=== PATIENT | male | born 1985 | race Two or more races ===

== ENCOUNTER 2017-06-27 14:33 | Emergency (ER) | payer OTHER, SELFPAY ==
[~2017-06-27] VITALS: Ht 177.8 cm; Wt 92.1 kg
[2017-06-27] MEDS ORDERED: METFORMIN HCL500 M1 ORAL ×2 (14:46→16:19)
[2017-06-27 14:55] VITALS: BP 131/75
--- NOTE | 2017-06-27 14:56 | Emergency Room Report ---
History of Present Illness General Chief Complaint: Vomiting Source: Patient Present Illness HPI 31YOM walk in with upper left abd pain with nausea.vomiting and diarrhea since last night Pain is intermittent, spastic No sick contacts at home No previous surgery or history of renal stones History of DM on metformin. Didnt take today Denies ETOH, drug abuse Allergies: Coded Allergies: No Known Allergies (Unverified , 06/27/17) Patient History Past Medical History: DM Past Surgical History: none Pertinent Family History: none Social History: Denies: smoking, alcohol use, drug use Immunizations: UTD Reviewed Nursing Documentation: PMH: Agreed, PSxH: Agreed Nursing Documentation-PMH Hx Diabetes: Yes Review of Systems All Other Systems: negative except mentioned in HPI Physical Exam Vital Signs Date Time Temp Pulse Resp B/P (MAP) Pulse Ox O2 Delivery O2 Flow Rate FiO2 06/27/17 14:42 98.2 133 18 129/79 96 Room Air Sp02 EP Interpretation: reviewed, normal General Appearance: normal inspection, well appearing, no apparent distress, alert, GCS 15, non-toxic Head: atraumatic ENT: normal ENT inspection, hearing grossly normal, normal voice Neck: normal inspection, full range of motion, supple, no bony tend Respiratory: normal inspection, lungs clear, normal breath sounds, no respiratory distress, no retraction, no wheezing Cardiovascular #1: regular rate, rhythm, no edema Gastrointestinal: normal inspection, normal bowel sounds, non tender, soft, no guarding, no hernia, other - Mild ttp to LUQ Genitourinary: no CVA tenderness Musculoskeletal: normal inspection, back normal, normal range of motion, Cristi' s Sign negative Neurologic: normal inspection, alert, responsive, speech normal Psychiatric: normal inspection, judgement/insight normal, mood/affect normal Skin: normal inspection, normal color, no rash Medical Decision Making Diagnostic Impression: Primary Impression: Abdominal pain Qualified Codes: R10.12 - Left upper quadrant pain Additional Impressions: Nausea & vomiting Qualified Codes: R11.2 - Nausea with vomiting, unspecified Hyperglycemia Abscess of left lung without pneumonia Qualified Codes: J85.2 - Abscess of lung without pneumonia ER Course RUQ pain with nausea/vomiting/diarrhea Leuks 25K. Hyperglycemia >400. Elevated total/direct bili. Lipase normal Blood Cx sent Empiric Abx given CT: left parenchymal abscess 5cm with surrounding empyema. Initially approved by insurance for Dr Pérez to accept at [place] [facility] or [facility] Spoke with Dr Pérez, 615pm, states he doesnt have Thoracic surgeon to consult at either facility I spoke to Dr Parrish here, who requested transfer to [facility] under hospitalist Dr Valdivia, where Dr Parrish will consult on patient I spoke to [employer] from [facility] who approved transfer/ambulance ride for patient to [facility] All above explained to patient - agreeable for transfer Rhythm Strip Diag. Results EP Interpretation: yes Rate: 95 Rhythm: NSR, no PVC's, no ectopy Last Vital Signs Date Time Temp Pulse Resp B/P (MAP) Pulse Ox O2 Delivery O2 Flow Rate FiO2 06/27/17 14:42 98.2 133 18 129/79 96 Room Air Status: improved Disposition: ADMITTED INPATIENT Condition: Serious LATONYA CORTEZ M.D. Jun 27, 2017 14:56
[2017-06-27] MEDS ORDERED: Ketorolac 30mg Inj IV ONE (15:00)
[2017-06-27 15:30] LABS: APPEARANCE,URINE SLIGHTLY CLOUDY; KETONES,URINE 2+ (NEGATIVE); LEUKOCYTE ESTERASE ,URINE 1+ (NEGATIVE); NITRITE,URINE NEGATIVE (NEGATIVE); PH,URINE 5 (4.5-8.0); PROTEIN,URINE 2+ (NEGATIVE); UROBILINOGEN,URINE 1 MG/DL (0.0-1.0)
[2017-06-27 15:31] LABS: MEAN CORPUSCULAR HEMOGLOBIN 32.7 PG (27.0-31.0); MEAN CORPUSCULAR HGB CONC 35.1 G/DL (32.0-36.0); MEAN CORPUSCULAR VOLUME 93 FL (80-99); MEAN PLATELET VOLUME 5.8 FL (6.5-10.1); PLATELET COUNT 447 K/UL (150-450); RED BLOOD COUNT 4.52 M/UL (4.70-6.10); RED CELL DISTRIBUTION WIDTH 9.9 % (11.6-14.8)
[2017-06-27 15:37] LABS: WHITE BLOOD COUNT 25.2 K/UL (4.8-10.8)
[2017-06-27] MEDS ORDERED: Zosyn 3.375gm/50ml Premix 50 ML IVPB STA (15:37)
[2017-06-27 15:41] LABS: AMORPHOUS SEDIMENT,UR FEW /LPF; BACTERIA,URINE FEW /HPF; SQUAMOUS EPITHELIAL CELL,UR OCCASIONAL /LPF (NONE/OCC)
[2017-06-27 15:42] LABS: ICTOTEST NEGATIVE; MUCUS,URINE FEW /LPF (NONE/OCC)
[2017-06-27 15:44] LABS: ALANINE AMINOTRANSFERASE 19 U/L (12-78); ALBUMIN/GLOBULIN RATIO 0.5 (1.0-2.7); ANION GAP 15 mmol/L (5-15); ASPARTATE AMINO TRANSFERASE 13 U/L (15-37); CALCIUM 9.5 MG/DL (8.5-10.1); CARBON DIOXIDE 22 MMOL/L (21-32); CHLORIDE 92 MMOL/L (98-107); CREATININE 1.3 MG/DL (0.55-1.30); GLOMERULAR FILTRATION RATE > 60 mL/min (>60); LIPASE 84 U/L (73-393); POTASSIUM 3.8 MMOL/L (3.5-5.1); SODIUM 129 MMOL/L (136-145); TOTAL PROTEIN 8.5 G/DL (6.4-8.2)
[2017-06-27 15:45] LABS: BILIRUBIN,DIRECT 0.4 MG/DL (0.0-0.3)
[2017-06-27] MEDS ORDERED: Morphine Sulfate 4mg/ml Inj IVP ONE (15:45)
[2017-06-27 16:00] VITALS: BP 132/75
[2017-06-27 16:10] LABS: LYMPHOCYTES % (MANUAL) 12 % (20-45); NEUTROPHILS % (MANUAL) 73 % (45-75); TOTAL CELLS COUNTED 100
[2017-06-27 16:11] LABS: BAND NEUTROPHILS % (MANUAL) 0 % (0-8); BASOPHILS % (MANUAL) 0 % (0-2); EOSINOPHILS % (MANUAL) 0 % (0-3); PLATELET ESTIMATE ADEQUATE; PLATELET MORPHOLOGY NORMAL
[2017-06-27 17:26] VITALS: BP 131/82
[2017-06-27] MEDS ORDERED: Meropenem 1 GM in NS 110 ML IVPB ONE (18:15)
[2017-06-27] MEDS ORDERED: Meropenem 1gm vial ONE (18:21)
[2017-06-27 18:52] VITALS: BP 136/83
[2017-06-27 21:00] VITALS: BP 149/91
[2017-06-27 21:50] VITALS: BP 149/91
--- NOTE | 2017-06-28 09:15 | Diagnostic Imaging Report ---
Indication: Acute left upper quadrant abdominal pain and vomiting. Comparison: None available. Technique: Utilizing a multislice CT scanner, a CT of the abdomen and pelvis was performed after administration of 75 cc Isovue-[address]. [address] scans at this facility use dose modulation, iterative reconstruction, and/or weight based dosing when appropriate to reduce radiation dose to as low as reasonably achievable. CTDIvol (mGy): 15 DLP (mGy-cm): 1004 Findings: Lack of intravenous contrast limits evaluation of the visceral and vascular structures. There is a 9.5 x 8.7 cm multiloculated low-attenuation collection in the posterior medial left lower chest suspicious for an abscess or empyema. The lesion is inseparable from the distal esophagus at the GE junction. Mild cavitation is identified. Findings may reflect sequela of pneumonia/empyema or prior esophageal perforation. Correlate with history and clinical parameters and consider appropriate followup. The liver is unremarkable. The gallbladder contains a few gallstones. The pancreas, spleen and adrenal glands are unremarkable. No calculus is identified within either kidney, along the expected course of the ureters or within the urinary bladder. There is no evidence of hydronephrosis or asymmetric perirenal inflammatory change. The urinary bladder is grossly unremarkable. The pelvic organs are grossly unremarkable. The appendix appears normal. There is mild ascending colon and rectal wall thickening and small volume fluid within the rectum. Inflammation or infection and diarrhea is a possibility. Consider routine colonoscopy as clinically warranted. There is no evidence of obstruction. There is no extraluminal gas or fluid. There are no enlarged lymph nodes. There is no significant calcified atherosclerotic disease of the the abdominal aorta. The osseous structures are unremarkable. Impression: 1. Large, 9.5 x 8.7 cm multiloculated low-attenuation collection in the posterior medial left lower chest is suspicious for an abscess or empyema. The lesion is inseparable from the distal esophagus at the GE junction. Differential considerations include sequela of esophageal perforation, or pneumonia/empyema. Correlate with history and clinical parameters and consider appropriate followup. 2. Mild wall thickening of the ascending colon and rectum, containing a small amount of fluid. Findings may reflect infectious or inflammatory colitis with diarrhea. Routine colonoscopy should be considered. 3. Cholelithiasis.
== END 2017-06-27 21:50 | disposition short-term general hospital (02) ==
LOC: EMR 14:46 → CANBEDREQ 21:47 → EMR 21:50
DX: R10.11 Right upper quadrant pain (principal); R11.2 Nausea with vomiting, unspecified; E11.65 Type 2 diabetes mellitus with hyperglycemia; J85.2 Abscess of lung without pneumonia; K80.20 Calculus of gallbladder without cholecystitis without obstruction
CPT/HCPCS: 36415; 74177; 80053; 80307; 81003; 82248; 83690; 85007; 85025; 87040; 96361; 96374; 96375; 99284; J1885; J2185; J2405; J2543; Q9967

== ENCOUNTER 2018-11-13 18:19 | Emergency (ER) | payer OTHER ==
[~2018-11-13] VITALS: Ht 175.3 cm; Wt 86.2 kg
[~2018-11-13 18:19] MED LIST: METFORMIN HCL500 M1 ORAL
[2018-11-13 18:35] VITALS: BP 134/86
--- NOTE | 2018-11-13 18:35 | NUR ---
ED Nurse Note: AMBULATED INTO ER DUE TO ABCESS ON POSTERIOR LOWER HEAD SINCE 11/06/18 AFTER GETTING HAIRCUT. NO REDNESS AND DISCHARGE.
--- NOTE | 2018-11-13 18:56 | Emergency Room Report ---
History of Present Illness General Chief Complaint: Skin Rash/Abscess Source: Patient (Uzair Feliz) Present Illness HPI 32-year-old male patient presents the ER complaining of abscess on the back of his neck. Reports he got his haircut a week ago and his scalp was cut. Reports a painful bump has appeared where the cut occurred, states has increased in size since that time. Reports is been taking [id number] NSAIDs without relief of symptoms. Reports subjective fever at home during this time, currently afebrile in the ER. Denies drainage from injury site. Reports up-to-date on his tetanus vaccinations. Denies other aggravating or relieving factors. (Uzair Feliz) Allergies: Coded Allergies: No Known Allergies (Unverified , 06/27/17) Patient History Past Medical History: see triage record Reviewed Nursing Documentation: PMH: Agreed; PSxH: Agreed (Uzair Feliz) Nursing Documentation-PMH Past Medical History: No History, Except For Hx Diabetes: Yes - type 1 (Uzair Feliz) Review of Systems All Other Systems: negative except mentioned in HPI (Uzair Feliz) Physical Exam Vital Signs Date Time Temp Pulse Resp B/P (MAP) Pulse Ox O2 Delivery O2 Flow Rate FiO2 11/13/18 18:27 99.0 110 20 134/86 98 Room Air Sp02 EP Interpretation: reviewed, normal General Appearance: well appearing, no apparent distress, alert, GCS 15, non- toxic Head: normocephalic, atraumatic Eyes: bilateral eye normal inspection, bilateral eye PERRL ENT: hearing grossly normal, normal pharynx, no angioedema, normal voice, uvula midline, moist mucus membranes Neck: full range of motion, no meningismus, no bony tend Respiratory: lungs clear, normal breath sounds, no rhonchi, no respiratory distress, no accessory muscle use, no wheezing, speaking full sentences Musculoskeletal: back normal, digits/nails normal, gait/station normal, normal range of motion, non-tender Psychiatric: mood/affect normal Skin: other - 2 cm circular abscess on dorsum of head, mixed induration and fluctuance, no surrounding erythema or edema, no drainage (Uzair Feliz) Procedures Incision and Drainage Incision and Drainage : Consent: Verbal Site: scalp Blade Size: 11 I & D Procedure: betadine prep, sterile drapes applied, sterile dressing applied Wound Location: other - posterior scalp Wound's Depth, Shape: superficial Wound Length (cm): 1 Irrigated w/ Saline (ccs): 10 Anesthesia: Lidocaine w/ Epi Volume Anesthetic (ccs): 1 Splint Applied?: No Sling Applied?: No Patient Tolerated: Well Complications: None (Uzair Feliz) Medical Decision Making PA Attestation Dr. Rivera is my supervising Physician whom patient management has been discussed with. (Uzair Feliz) Diagnostic Impression: Primary Impression: Abscess ER Course Pt. presents to the ED c/o bump on back of head. Ddx considered but are not limited to rash, cellulitis, abscess, sebaceous cyst , carbuncle, folliculitis. Does not require imaging at this time. Vital signs: are WNL, pt. is afebrile ED INTERVENTIONS: Provide with pain medication. Local block of abscess performed with lidocaine with epinephrine. I&D of abscess performed. Pus drained. See procedure note. Sterile dressing applied to wound following procedure. Discharge patient home with antibiotics. Wound check in 2-3 days. ER precautions given. DISCHARGE: At this time pt. is stable for d/c to home. Patient is resting comfortably, in no acute distress, nontoxic appearing. Will provide printed patient care instructions and any necessary prescriptions. Care plan and follow up instructions have been discussed with the patient prior to discharge. Patient instructed to follow-up with primary care provider in 2 - 3 days for wound recheck. Patient questions asked and answered. Patient reports understanding and agreement to treatment plan. ER precautions given. Patient instructed to return to ER immediately for any new or worsening of symptoms including but not limited to fever, worsening of pain symptoms, worsening of erythema, red streaking. - Please note that this Emergency Department Report was dictated using [employer] assembly supervisor technology software, occasionally this can lead to erroneous entry secondary to interpretation by the dictation equipment. (Uzair Feliz) ER Course Please see above note. Patient examined by me. Discussed incision and drainage. I agree with treatment plan. (Dheeraj Rivera MD) Last Vital Signs Date Time Temp Pulse Resp B/P (MAP) Pulse Ox O2 Delivery O2 Flow Rate FiO2 11/13/18 18:35 99.0 110 20 134/86 98 Room Air Status: improved (Uzair Feliz) Disposition: HOME, SELF-CARE Condition: Stable Scripts Ibuprofen* (MOTRIN*) 600 Mg Tablet 600 MG ORAL Q8H PRN for For Pain, #30 TAB 0 Refills Prov: Uzair Feliz 11/13/18 Cephalexin* (KEFLEX*) 500 Mg Capsule 500 MG ORAL EVERY 12 HOURS, #14 CAP 0 Refills Prov: Uzair Feliz 11/13/18 Bacitracin/Polymyxin B Sulfate (BACITRACIN-POLYMYXIN OINTMENT) 28.35 Gm Oint...g. 1 APPLIC TP BID, #28 GM Prov: Uzair Feliz 11/13/18 Patient Instructions: Abscess Additional Instructions: Followup with PCP in 2-3 days for wound check. Take medications as instructed. Patient questions asked and answered. Apply warm compresses to affected area. Keep wound clean and dry. ER precautions given. Return to ER for new or worsening of symptoms including but not limited to chest pain, SOB, red streaking, worsening of abscess, intractible vomiting. Uzair Feliz Nov 13, 2018 18:56 Dheeraj Rivera MD Nov 14, 2018 02:09
[2018-11-13] MEDS ORDERED: Ketorolac 30mg Inj IM ONE (19:00)
--- NOTE | 2018-11-13 19:07 | NUR ---
HAND-OFF: Report given to RANDELL ZELAYA. NO S/S OF DISTRES.
[2018-11-13] MEDS ORDERED: IBUPROFEN600 MG ORAL (19:32)
[2018-11-13] MEDS ORDERED: CEPHALEXIN500 MG ORAL (19:32)
[2018-11-13] MEDS ORDERED: BACITRACIN-P28.35 GM TP (19:32)
[2018-11-13] MEDS ORDERED: Bacitracin Oint UD TOPIC ONE ×2 (19:34→19:45)
--- NOTE | 2018-11-13 19:36 | NUR ---
ED Nurse Note: verbal order of bacitracin per ryann carreon
[2018-11-13 19:44] VITALS: BP 134/86
--- NOTE | 2018-11-13 19:44 | NUR ---
ER DISCHARGE NOTE: Patient is cleared to be discharged per ERMD, pt is aox4, on room air, with stable vital signs. pt was given dc and prescription instructions, pt was able to verbalize understanding, pt id band removed . pt is able to ambulate with steady gait. pt took all belongings.
== END 2018-11-13 19:43 | disposition home or self-care (01) ==
LOC: EMR 19:28
DX: L02.11 Cutaneous abscess of neck (principal); E10.9 Type 1 diabetes mellitus without complications
CPT/HCPCS: 10060; 96372; 99283; J1885; Z7502